=== PATIENT | female | born 1950 | race Caucasian/White ===

== ENCOUNTER → 2017-07-27 | Outpatient (CLI) | payer MEDICARE ==
--- NOTE | 2017-07-28 11:01 | MM ---
Reason for exam: screening (asymptomatic). Last mammogram was performed 6 years and 3 months ago. History: Patient had first child at age 31. Family history of breast cancer in mother at age 40 and breast cancer in sister at age 50. Benign excisional biopsy, 1968. Took hormonal contraceptives for 5 years. Physical Findings: A clinical breast exam by your physician is recommended on an annual basis and results should be correlated with mammographic findings. MG 3D Screening Mammo W/Cad Bilateral CC and MLO view(s) were taken. Prior study comparison: May 26, 2016, mammogram, performed at [facility]. May 06, 2011, mammogram, performed at [facility]. There are scattered fibroglandular densities. Finding: There are typically benign round calcifications in both breasts. There is a chronic nodularity in the left breast. There is no discrete abnormality. ASSESSMENT: Benign, BI-RAD 2 RECOMMENDATION: Routine screening mammogram of both breasts in 1 year.
== END | disposition home or self-care (01) ==
LOC: RADMAMWWP 06:54
PROVIDERS: ATTEND Family Medicine
DX: Z12.31 Encounter for screening mammogram for malignant neoplasm of breast (principal)
CPT/HCPCS: 77063; 77067

== ENCOUNTER → 2017-10-06 | Day surgery (SDC) | payer MEDICARE ==
[2017-09-30 18:06] VITALS: BMI 28.5
[~2017-10-06] MED LIST: LACTATED RINGERS 1,000 ML IV SCH; LIDOCAINE 1% 20 ML VIAL (10MG/ML) FOR IV START INTRADERMA PRN; LIDOCAINE 1% INJ 10MG/ML (20 ML MDV) ONE; PROPOFOL 10 MG/ML 20 ML VIAL IV ONE
--- NOTE | 2017-10-06 09:14 | P.GSHP ---
History of Present Illness H&P Date: 10/06/17 CHIEF COMPLAINT: Colon screen HISTORY OF PRESENT ILLNESS: The patient is a 67-year-old female who presents for colon screen. Lower endoscopy was offered for further evaluation and management. PAST MEDICAL HISTORY: Please see list. PAST SURGICAL HISTORY: Please see list. MEDICATIONS: Please see list. ALLERGIES: Please see list. SOCIAL HISTORY: No illicit drug use FAMILY HISTORY: No reports of Crohn disease or ulcerative colitis. REVIEW OF ORGAN SYSTEMS: CONSTITUTIONAL: No reports of fevers or chills. PHYSICAL EXAM: VITAL SIGNS: Stable GENERAL: Well-developed pleasant in no acute distress. HEENT: No scleral icterus. Extraocular movements grossly intact. Moist buccal mucosa. NECK: Supple without lymphadenopathy. CHEST: Unlabored respirations. Equal bilateral excursions. CARDIOVASCULAR: Regular rate and rhythm. Distal 2+ pulses. ABDOMEN: Soft, nontender, nondistended. MUSCULOSKELETAL: No clubbing, cyanosis, or edema. ASSESSMENT: 1. Colon screen. PLAN: 1. Recommend proceeding with a lower endoscopy Past Medical History Past Medical History: GERD/Reflux, Hyperlipidemia, Hypertension, Skin Disorder Additional Past Medical History / Comment(s): PCOS. PSORIASIS ON SCALP. History of Any Multi-Drug Resistant Organisms: None Reported Past Surgical History: Breast Surgery, Section, Cholecystectomy, Tonsillectomy Additional Past Surgical History / Comment(s): C-S X2. COLONOSCOPY. RT BREAST BX. EXC MOLE BACK. Past Anesthesia/Blood Transfusion Reactions: Previous Problems w/ Anesthesia Additional Past Anesthesia/Blood Transfusion Reaction / Comment(s): WITH EPINEPHRINE AT DENTIST PASSED OUT. Smoking Status: Never smoker - Past Family History Mother Sister(s) Family Medical History: Cancer Father Family Medical History: Pulmonary Embolus Medications and Allergies Home Medications Medication Instructions Recorded Confirmed Type Amitriptyline HCl [Elavil] 100 mg PO HS 09/30/17 09/30/17 History Aspirin EC [Ecotrin Low Dose] 81 mg PO HS 09/30/17 09/30/17 History Cetirizine HCl [Zyrtec] 10 mg PO HS PRN 09/30/17 09/30/17 History Cholecalciferol (Vitamin D3) 4,000 unit PO DAILY 09/30/17 09/30/17 History [Vitamin D3] Fenofibrate [Lofibra] 160 mg PO DAILY 09/30/17 09/30/17 History Fluticasone Nasal [place] [Flonase 2 spr EA NOSTRIL DAILY 09/30/17 09/30/17 History Nasal [place]] Levothyroxine Sodium [Synthroid] 75 mcg PO DAILY 09/30/17 09/30/17 History Meloxicam [Mobic] 15 mg PO DAILY PRN 09/30/17 09/30/17 History Multivitam, Mature 1 tab PO DAILY 09/30/17 History [place]-3/Dha/Epa/Fish Oil [Fish Oil 1 each PO DAILY 09/30/17 09/30/17 History EC 1,200 mg Softgel] Omeprazole 20 mg PO DAILY 09/30/17 09/30/17 History Polyethylene Glycol 3350 [Miralax] 17 gm PO DAILY 09/30/17 09/30/17 History Spironolactone 50 mg PO DAILY 09/30/17 09/30/17 History Ubidecarenone [Co Q-10] 300 mg PO DAILY 09/30/17 09/30/17 History buPROPion XL [Wellbutrin Xl] 150 mg PO DAILY 09/30/17 09/30/17 History metFORMIN HCL [Glucophage] 500 mg PO BID 09/30/17 09/30/17 History Allergies Allergy/AdvReac Type Severity Reaction Status Date / Time acetaminophen [From Vicodin] Allergy Rash/Hives Verified 09/30/17 17:40 celecoxib [From Celebrex] Allergy Rash/Hives Verified 09/30/17 17:40 codeine Allergy Rash/Hives Verified 09/30/17 17:40 epinephrine Allergy PASSED OUT Verified 09/30/17 17:40 hydrocodone [From Vicodin] Allergy Rash/Hives Verified 09/30/17 17:40 [id number]-[id number]-Wnw Reductase AdvReac MUSCLE Verified 09/30/17 17:40 Inhibitor CRAMPS
[2017-10-06 11:15] VITALS: TEMP 98.1
--- NOTE | 2017-10-06 12:39 | P.PCN ---
Date of Procedure: 10/06/17 Description of Procedure: PREOPERATIVE DIAGNOSIS: Colonoscopy screening. POSTOPERATIVE DIAGNOSIS: Colonoscopy screening. Diverticulosis, scattered. Tubular adenoma hepatic flexure Poor colonoscopy prep Chronic constipation OPERATION: Colonoscopy to the ileocecal valve and appendiceal orifice. Colonoscopy with cold forceps biopsy SURGEON: Nikki Rankin MD. ANESTHESIA: MAC. INDICATIONS: The patient is a [id number] female who presents for colonoscopy screening. Benefits and risks were described and informed consent was obtained. DESCRIPTION OF PROCEDURE: The patient had undergone Gatorade, MiraLAX and Dulcolax prep. She had been brought into the operating room and laid in the left lateral decubitus position. After adequate intravenous sedation, the rectum was examined with 2% lidocaine jelly. External hemorrhoids were encountered. The rectal tone was within normal limits. No lesions were palpated in the rectal vault. An Olympus colonoscope was advanced until the ileocecal valve was viewed. The patient was placed from lateral to supine to lateral decubitus to navigate the scope including abdominal wall pressure. The prep was very poor requiring over 2 L normal saline irrigation. The scope was slowly removed with visualization of the mucosal folds. Scattered diverticulosis was encountered. Colonic polyp was found at the hepatic flexure, 4 mm tubular villous. No evidence of focal colitis was found. Retroflexion of the scope demonstrated grade 2 internal hemorrhoids without active bleeding or inflammation. The colon was desufflated. The patient had tolerated the procedure well. Withdrawal time was over 6 minutes. FINDINGS: Internal hemorrhoids, grade 2 External prolapsed hemorrhoids, grade 2 Extremely poor colonic prep requiring moderate 2 L irrigation No arteriovenous malformations. No focal colitis. Colonic polyp was found at the hepatic flexure, 4 mm tubular villous RECOMMENDATIONS: Lower endoscopy in 5 years, 2022 Plan - Discharge Summary New Discharge Prescriptions: No Action [place]-3/Dha/Epa/Fish Oil [Fish Oil EC 1,200 mg Softgel] 1 each PO DAILY Fluticasone Nasal [place] [Flonase Nasal [place]] 2 spr EA NOSTRIL DAILY Ubidecarenone [Co Q-10] 300 mg PO DAILY Omeprazole 20 mg PO DAILY Cholecalciferol (Vitamin D3) [Vitamin D3] 4,000 unit PO DAILY metFORMIN HCL [Glucophage] 500 mg PO BID Meloxicam [Mobic] 15 mg PO DAILY PRN PRN Reason: Pain Fenofibrate [Lofibra] 160 mg PO DAILY buPROPion XL [Wellbutrin Xl] 150 mg PO DAILY Spironolactone 50 mg PO DAILY Cetirizine HCl [Zyrtec] 10 mg PO HS PRN PRN Reason: ALLERGY SX Aspirin EC [Ecotrin Low Dose] 81 mg PO HS Amitriptyline HCl [Elavil] 100 mg PO HS Multivitam, Mature 1 tab PO DAILY Levothyroxine Sodium [Synthroid] 75 mcg PO DAILY Polyethylene Glycol 3350 [Miralax] 17 gm PO DAILY Discharge Medication List Amitriptyline HCl [Elavil] 100 mg PO HS 09/30/17 [History] Aspirin EC [Ecotrin Low Dose] 81 mg PO HS 09/30/17 [History] Cetirizine HCl [Zyrtec] 10 mg PO HS PRN 09/30/17 [History] Cholecalciferol (Vitamin D3) [Vitamin D3] 4,000 unit PO DAILY 09/30/17 [History] Fenofibrate [Lofibra] 160 mg PO DAILY 09/30/17 [History] Fluticasone Nasal [place] [Flonase Nasal [place]] 2 spr EA NOSTRIL DAILY 09/30/17 [ History] Levothyroxine Sodium [Synthroid] 75 mcg PO DAILY 09/30/17 [History] Meloxicam [Mobic] 15 mg PO DAILY PRN 09/30/17 [History] Multivitam, Mature 1 tab PO DAILY 09/30/17 [History] [place]-3/Dha/Epa/Fish Oil [Fish Oil EC 1,200 mg Softgel] 1 each PO DAILY [History] Omeprazole 20 mg PO DAILY 09/30/17 [History] Polyethylene Glycol 3350 [Miralax] 17 gm PO DAILY 09/30/17 [History] Spironolactone 50 mg PO DAILY 09/30/17 [History] Ubidecarenone [Co Q-10] 300 mg PO DAILY 09/30/17 [History] buPROPion XL [Wellbutrin Xl] 150 mg PO DAILY 09/30/17 [History] metFORMIN HCL [Glucophage] 500 mg PO BID 09/30/17 [History]
[2017-10-06 13:06] VITALS: RESP 18
[2017-10-06 13:08] VITALS: BP 120/66; PULSE 91
== END | disposition home or self-care (01) ==
LOC: ORWHC2ENDO 09:14
PROVIDERS: ATTEND Surgery Plastic and Reconstructive Surgery
DX: Z12.11 Encounter for screening for malignant neoplasm of colon (principal); D12.3 Benign neoplasm of transverse colon; E28.2 Polycystic ovarian syndrome; E78.5 Hyperlipidemia, unspecified; I10 Essential (primary) hypertension; K21.9 Gastro-esophageal reflux disease without esophagitis; L40.9 Psoriasis, unspecified; K64.4 Residual hemorrhoidal skin tags; K64.1 Second degree hemorrhoids; E07.9 Disorder of thyroid, unspecified; F39 Unspecified mood [affective] disorder; K57.30 Diverticulosis of large intestine without perforation or abscess without bleeding; Z79.82 Long term (current) use of aspirin; Z79.51 Long term (current) use of inhaled steroids; Z79.899 Other long term (current) drug therapy; Z90.49 Acquired absence of other specified parts of digestive tract; Z88.5 Allergy status to narcotic agent; Z88.8 Allergy status to other drugs, medicaments and biological substances; Z79.84 Long term (current) use of oral hypoglycemic drugs
CPT/HCPCS: 88305; 45380; J2001; J2704

== ENCOUNTER → 2019-06-20 | Outpatient (CLI) | payer BC, MEDICARE ==
--- NOTE | 2019-06-21 13:07 | MM ---
Reason for exam: additional evaluation requested from prior study. Last mammogram was performed 1 year and 1 month ago. History: Patient had first child at age 31. Family history of breast cancer in mother at age 40 and breast cancer in sister at age 50. Benign excisional biopsy, 1968. Took hormonal contraceptives for 5 years. Taking estrogen beginning at age 67. Physical Findings: Nurse did not find any significant physical abnormalities on exam. MG 3D Diag Mammo W/Cad LEIGH Bilateral CC and MLO view(s) were taken. Prior study comparison: May 18, 2018, bilateral MG 3d diag mammo w/cad LEIGH. July 27, 2017, bilateral MG 3d screening mammo w/cad. The breast tissue is heterogeneously dense. This may lower the sensitivity of mammography. Benign appearing bilateral calcifications. No suspicious abnormality. No significant new findings when compared with previous films. These results were verbally communicated with the patient and result sheet given to the patient on 06/20/19. ASSESSMENT: Benign, BI-RAD 2 RECOMMENDATION: Routine screening mammogram of both breasts in 1 year. Ultrasound is benign performed for right breast skin thickening per patient.
--- NOTE | 2019-06-21 13:09 | USB ---
Reason for exam: clinical finding. History: Patient had first child at age 31. Family history of breast cancer in mother at age 40 and breast cancer in sister at age 50. Benign excisional biopsy, 1967. Took hormonal contraceptives for 5 years. Taking estrogen beginning at age 67. US Breast RT Right complete breast ultrasound includes all four quadrants, the retroareolar region and axilla. Finding demonstrates no cystic or solid lesion seen. Lymph nodes noted in axilla morphology normal and nonenlarged. These results were verbally communicated with the patient and result sheet given to the patient on 06/20/19. ASSESSMENT: Negative, BI-RAD 1 RECOMMENDATION: Routine screening mammogram of both breasts in 1 year.
== END | disposition home or self-care (01) ==
LOC: RADMAMWWP 12:45
PROVIDERS: ATTEND Family Medicine
DX: N63.10 Unspecified lump in the right breast, unspecified quadrant (principal)
CPT/HCPCS: 77066; 76641; G0279; 77062

== ENCOUNTER → 2019-07-07 | Outpatient (CLI) | payer MEDICARE ==
[2019-07-07 09:11] VITALS: BP 117/76; PULSE 86; RESP 16; TEMP 97.7
--- NOTE | 2019-07-07 09:58 | P.GSHP ---
History of Present Illness H&P Date: 07/07/19 Chief Complaint: right axilla lump Fanny is a 69-year-old white female who presents for breast evaluation. She is seen in consultation for Dr. Sevilla. She states that several months ago she felt some fullness in the right lateral breast/axillary area. She had a bilateral mammogram performed on [id number] which did not see anything of concern and repeat bilateral mammogram in 1 year was recommended. She also had an ultrasound performed of the area of thickening and the ultrasound did not show any cystic or solid lesions. Lymph nodes were noted in the axilla which appeared to have normal morphology. The patient denies any pain or trauma to the breast. No recent infections in the breast. No abnormal nipple discharge or changes. caffiene: none chocolate: occasionally smoke: none Family History; mother: of breast cancer at 53, dx. premenopausal sister: breast cancer at 70, genetic testing negative son: cancer of appendix Hormonal History: menarche: 9 , bresat fed: yes, first born at 31 menopause: hysterectomy at 38, done for bleeding BCP: 10 years hormones: estradioil vaginal inserts Surgical history: 1. 2 2. Cholecystectomy 3. Tonsillectomy 4. Nevus removed from back 5. Hysterectomy 6. Open breast biopsy Medical history: high cholesterol depression interstitial cystitis social History: smoke: none alcohol: none drugs: none - Constitutional Constitutional: Denies chills, Denies fever - EENT Eyes: denies blurred vision, denies pain Ears: deny: decreased hearing, tinnitus Ears, nose, mouth and throat: Denies headache, Denies sore throat - Breasts Breasts: bilateral: as per HPI - Cardiovascular Cardiovascular: Denies chest pain, Denies shortness of breath - Respiratory Respiratory: Denies cough, Denies 7 - Gastrointestinal Gastrointestinal: Denies abdominal pain, Denies diarrhea, Denies nausea, Denies vomiting - Genitourinary (Female) Comment: Interstitial cystitis - Menstruation Menstruation: Reports post hysterectomy - 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 - Integumentary Integumentary: Denies pruritus, Denies rash - Neurological Neurological: Denies numbness, Denies weakness - Psychiatric Psychiatric: Reports depression - Endocrine Endocrine: Denies fatigue, Denies weight change - Hematologic/Lymphatic Comment: mobic once a week, asprirn, fish oil - Allergic/Immunologic Allergic/Immunologic: Reports seasonal allergies Past Medical History Past Medical History: GERD/Reflux, Hyperlipidemia, Hypertension, Skin Disorder Additional Past Medical History / Comment(s): PCOS. PSORIASIS ON SCALP. History of Any Multi-Drug Resistant Organisms: None Reported Past Surgical History: Breast Surgery, Section, Cholecystectomy, Tonsillectomy Additional Past Surgical History / Comment(s): C-S X2. COLONOSCOPY. RT BREAST BX. EXC MOLE BACK. Past Anesthesia/Blood Transfusion Reactions: Previous Problems w/ Anesthesia Additional Past Anesthesia/Blood Transfusion Reaction / Comment(s): WITH EPINEPHRINE AT DENTIST PASSED OUT. Smoking Status: Never smoker Past Alcohol Use History: None Reported Past Drug Use History: None Reported - Past Family History Mother Sister(s) Family Medical History: Cancer Father Family Medical History: Pulmonary Embolus Medications and Allergies Home Medications Medication Instructions Recorded Confirmed Type Amitriptyline HCl [Elavil] 100 mg PO HS 09/30/17 07/07/19 History Aspirin EC [Ecotrin Low Dose] 81 mg PO HS 09/30/17 07/07/19 History Cetirizine HCl [Zyrtec] 10 mg PO HS PRN 09/30/17 07/07/19 History Cholecalciferol (Vitamin D3) 4,000 unit PO DAILY 09/30/17 07/07/19 History [Vitamin D3] Fluticasone Nasal [place] [Flonase 2 spr EA NOSTRIL DAILY 09/30/17 07/07/19 History Nasal [place]] Levothyroxine Sodium [Synthroid] 75 mcg PO DAILY 09/30/17 07/07/19 History Meloxicam [Mobic] 15 mg PO DAILY PRN 09/30/17 07/07/19 History Multivitam, Mature 1 tab PO DAILY 09/30/17 07/07/19 History [place]-3/Dha/Epa/Fish Oil [Fish Oil 1 each PO DAILY 09/30/17 07/07/19 History EC 1,200 mg Softgel] Omeprazole 20 mg PO DAILY 09/30/17 07/07/19 History Polyethylene Glycol 3350 [Miralax] 17 gm PO DAILY 09/30/17 07/07/19 History Spironolactone 50 mg PO DAILY 09/30/17 07/07/19 History Ubidecarenone [Co Q-10] 300 mg PO DAILY 09/30/17 07/07/19 History buPROPion XL [Wellbutrin Xl] 150 mg PO DAILY 09/30/17 07/07/19 History metFORMIN HCL [Glucophage] 500 mg PO BID 09/30/17 07/07/19 History Allergies Allergy/AdvReac Type Severity Reaction Status Date / Time acetaminophen [From Vicodin] Allergy Rash/Hives Verified 07/07/19 09:05 celecoxib [From Celebrex] Allergy Rash/Hives Verified 07/07/19 09:05 codeine Allergy Rash/Hives Verified 07/07/19 09:05 epinephrine Allergy PASSED OUT Verified 07/07/19 09:05 hydrocodone [From Vicodin] Allergy Rash/Hives Verified 07/07/19 09:05 Rayupsq-Qyp-Eqc Reductase AdvReac MUSCLE Verified 07/07/19 09:05 Inhibitor CRAMPS Surgical - Exam Vital Signs Temp Pulse Resp BP Pulse Ox 97.7 F 86 16 117/76 98 07/07/19 09:08 07/07/19 09:08 07/07/19 09:08 07/07/19 09:08 07/07/19 09:08 BMI 27.4 - General well developed, well nourished, no distress - Eyes normal ocular movement - ENT no hearing loss, no congestion - Neck no masses, trachea midline - Respiratory normal expansion, normal respiratory effort, clear to auscultation - Cardiovascular Rhythm: regular Heart Sounds: normal: S1, S2 - Abdomen Abdomen: soft, non tender, no guarding, no rigid, no rebound - Integumentary normal turgor - Neurologic no disoriented, no combative - Musculoskeletal normal gait, normal posture - Psychiatric oriented to time, oriented to person, oriented to place, speech is normal, memory intact breast exam: Bra 42D Right breast: Multiple positional exam fibrocystic changes, no dominant masses or nodules of concern, right breast is slightly larger than left breast Right axilla: No dominant masses or nodules of concern Left breast: Multi-positional exam fibrocystic changes no dominant masses or nodules of concern Left axilla: No adenopathy of concern Particular attention was paid to the area of the right axilla/lateral breast at the patient was concerned about there is no discrete dominant mass which I'm able to palpate of concern there appears to be somewhat prominent subcutaneous tissue but nothing was rewarmed biopsy at this time Results mammogram report reviewed Assessment and Plan Assessment: Impression: 1. Fullness right lateral breast/axilla which appears to be consistent with prominent subcutaneous tissue but no discrete dominant mass or nodule which would warrant interventional biopsy 2. Fibrocystic breast changes 3. Depression 4. High cholesterol 5. Interstitial cystitis Plan: 1. Continue close personal surveillance if any changes would see the patient immediately 2. Repeat physical exam in 6 months for monitoring 3. Bilateral mammogram in physician exam in 1 year Cc: Dr. Sevilla Encounter: 25 minutes, greater than 50% of time spent in planning and counseling
== END | disposition home or self-care (01) ==
LOC: WWCWWP 08:29
PROVIDERS: ATTEND Surgery
DX: Z53.9 Procedure and treatment not carried out, unspecified reason (principal)

== ENCOUNTER → 2020-03-07 | Outpatient (CLI) | payer MEDICARE | END | disposition home or self-care (01) | LOC: LABWHC1 13:04 | PROVIDERS: ATTEND Family Medicine | DX: Z20.828 Contact with and (suspected) exposure to other viral communicable diseases (principal) | CPT/HCPCS: U0003; C9803 ==

== ENCOUNTER → 2020-06-24 | Outpatient (CLI) | payer MEDICARE ==
--- NOTE | 2020-06-24 10:39 | MM ---
Reason for exam: additional evaluation requested from prior study. Last mammogram was performed 1 year ago. History: Patient had first child at age 31. Family history of breast cancer in mother at age 40 and breast cancer in sister at age 50. Benign excisional biopsy, 1968. Took hormonal contraceptives for 5 years. Taking estrogen beginning at age 67. Physical Findings: Nurse did not find any significant physical abnormalities on exam. MG 3D Diag Mammo W/Cad LEIGH Bilateral CC and MLO view(s) were taken. Prior study comparison: June 20, 2019, bilateral MG 3d diag mammo w/cad LEIGH. May 18, 2018, bilateral MG 3d diag mammo w/cad LEIGH. The breast tissue is heterogeneously dense. This may lower the sensitivity of mammography. Stable benign calcifications. There is no discrete abnormality. No significant new findings when compared with previous films. These results were verbally communicated with the patient and result sheet given to the patient on 06/24/20. ASSESSMENT: Benign, BI-RAD 2 RECOMMENDATION: Routine screening mammogram of both breasts in 1 year.
== END | disposition home or self-care (01) ==
LOC: RADMAMWWP 09:32
PROVIDERS: ATTEND Surgery
DX: R92.8 Other abnormal and inconclusive findings on diagnostic imaging of breast (principal)
CPT/HCPCS: 77066; G0279; 77062

== ENCOUNTER → 2020-07-11 | Outpatient (CLI) | payer MEDICARE ==
[2020-07-11 10:45] VITALS: BP 122/64; RESP 18; TEMP 97.8
--- NOTE | 2020-07-11 10:51 | P.PN ---
Subjective Progress Note Date: 07/11/20 Principal diagnosis: fibrocystic breast changes Fanny is a 70-year-old white female who presents for breast evaluation. She was seen in consultation for Dr. Clayton on 07-07-19. At that time she felt some fullness in the right lateral breast/axillary area, this has not changed. She had a bilateral mammogram performed on [id number] which did not see anything of concern and repeat bilateral mammogram in 1 year was recommended. She also had an ultrasound performed of the area of thickening and the ultrasound did not show any cystic or solid lesions. The patient denied any pain or trauma to the breast. She is not complaining of any lumps masses or nodules in her breast. No recent infections in the breast. No abnormal nipple discharge or changes. Most recent mammogram was on 06-24-20 and this was benign BIRAD 2. caffiene: none chocolate: occasionally smoke: none Family History; mother: of breast cancer at 53, dx. premenopausal sister: breast cancer at 70, genetic testing negative son: cancer of appendix Hormonal History: menarche: 9 , bresat fed: yes, first born at 31 menopause: hysterectomy at 38, done for bleeding BCP: 10 years hormones: estradioil vaginal inserts Surgical history: 1. 2 2. Cholecystectomy 3. Tonsillectomy 4. Nevus removed from back 5. Hysterectomy 6. Open breast biopsy Medical history: high cholesterol depression interstitial cystitis social History: smoke: none alcohol: none drugs: none - Constitutional Constitutional: Denies chills, Denies fever - EENT Eyes: denies blurred vision, denies pain Ears: deny: decreased hearing, tinnitus Ears, nose, mouth and throat: Denies headache, Denies sore throat - Breasts Breasts: bilateral: as per HPI - Cardiovascular Cardiovascular: Denies chest pain, Denies shortness of breath - Respiratory Respiratory: Denies cough - Gastrointestinal Gastrointestinal: Denies abdominal pain, Denies diarrhea, Denies nausea, Denies vomiting - Genitourinary (Female) Comment: Interstitial cystitis - Menstruation Menstruation: Reports post hysterectomy - 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 - Integumentary Integumentary: Denies pruritus, Denies rash - Neurological Neurological: Denies numbness, Denies weakness - Psychiatric Psychiatric: Reports depression - Endocrine Endocrine: Denies fatigue, Denies weight change - Hematologic/Lymphatic Comment: mobic once a week, asprirn, fish oil - Allergic/Immunologic Allergic/Immunologic: Reports seasonal allergies Objective - Exam BMI 26.6 - Constitutional General appearance: Present: average body habitus - EENT Eyes: Present: EOMI ENT: Present: hearing grossly normal - Neck Neck: Present: normal ROM - Respiratory Respiratory: bilateral: CTA - Cardiovascular Rhythm: regular Heart sounds: normal: S1, S2 - Gastrointestinal General gastrointestinal: Present: soft - Integumentary Integumentary: Present: normal turgor - Musculoskeletal Musculoskeletal: Present: gait normal - Psychiatric Psychiatric: Present: A&O x's 3, appropriate affect - Additional findings Additional findings: Breast exam: BRA 38D inspection: bilateral grade 3 ptosis, bilateral nipple inversion Palpation: Right breast: Multi-positional exam no dominant masses or nodules of concern Right axilla: No adenopathy of concern Left breast: Multiple positional exam no dominant masses or nodules of concern Left axilla: No adenopathy of concern Assessment and Plan Assessment: Impression: high cholesterol depression interstitial cystitis fibrocystic breast changes Plan: 1. repeat bilateral mammogram in 1 year with exam CC: Dr. Clayton encounter 15 minutes, > 50% of time in planning and counselling
== END | disposition home or self-care (01) ==
LOC: WWCWWP 10:07
PROVIDERS: ATTEND Surgery
DX: Z53.9 Procedure and treatment not carried out, unspecified reason (principal)

== ENCOUNTER → 2021-04-15 | Outpatient (CLI) | payer MEDICARE ==
--- NOTE | 2021-04-15 11:02 | XR ---
EXAMINATION TYPE: XR cervical spine comp DATE OF EXAM: 04/15/2021 TECHNIQUE: Frontal, lateral, oblique, and open mouth view of the cervical spine are obtained. HISTORY: M54.2 COMPARISON: None FINDINGS: The cervical spine is visualized in its entirety from C1 thru the top of T1 level, there i s loss of normal cervical curvature without evidence of acute fracture or dislocation. The pre-verte bral soft tissue appears within normal limits. The C1-C2 articulation is within normal limits on the open mouth view. Vertebral body heights are maintained. Mild to moderate disc space narrowing C4-C5 level. [id number] disc space narrowing C5-C6 and C6-C7 levels with mild to moderate anterior spurring. Moderate disc space during C7-T1 level. The oblique images show uncovertebral facet degene rative changes causing mild bilateral neural foraminal narrowing at C3-C4 level. Overlying soft tissu e is unremarkable. IMPRESSION: As above.
== END | disposition home or self-care (01) ==
LOC: RADXRMAIN 10:37
PROVIDERS: ATTEND Nurse Practitioner Family
DX: M50.323 Other cervical disc degeneration at C6-C7 level (principal); M47.812 Spondylosis without myelopathy or radiculopathy, cervical region
CPT/HCPCS: 72050

== ENCOUNTER → 2021-06-26 | Outpatient (CLI) | payer MEDICARE ==
--- NOTE | 2021-06-30 12:04 | MM ---
Reason for exam: screening (asymptomatic). Last mammogram was performed 1 year ago. History: Patient had first child at age 31. Family history of breast cancer in mother at age 40 and breast cancer in sister at age 50. Benign excisional biopsy, 1968. Took hormonal contraceptives for 5 years. Taking estrogen beginning at age 67. Physical Findings: A clinical breast exam by your physician is recommended on an annual basis and results should be correlated with mammographic findings. MG 3D Screening Mammo W/Cad Bilateral CC and MLO view(s) were taken. Prior study comparison: June 24, 2020, bilateral MG 3d diag mammo w/cad [facility]. June 20, 2019, bilateral MG 3d diag mammo w/cad [facility]. There are scattered fibroglandular densities. No significant changes when compared with prior studies. ASSESSMENT: Negative, BI-RAD 1 RECOMMENDATION: Routine screening mammogram of both breasts in 1 year.
== END | disposition home or self-care (01) ==
LOC: RADMAMWWP 07:01
PROVIDERS: ATTEND Surgery
DX: Z12.31 Encounter for screening mammogram for malignant neoplasm of breast (principal); Z80.3 Family history of malignant neoplasm of breast
CPT/HCPCS: 77063; 77067

== ENCOUNTER → 2021-07-10 | Outpatient (CLI) | payer MEDICARE ==
[2021-07-10 09:41] VITALS: BP 129/84; PULSE 98; RESP 16; TEMP 98.1
--- NOTE | 2021-07-10 10:09 | P.PN ---
Subjective Progress Note Date: 07/10/21 Principal diagnosis: fibrocystic breast changes fibrocystic breast changes Fanny is a 71-year-old white female who presents for breast evaluation. She was seen in consultation for Dr. Clayton on 07-07-19. At that time she felt some fullness in the right lateral breast/axillary area, this has not changed. She had a bilateral mammogram performed on 12160713 which did not see anything of concern and repeat bilateral mammogram in 1 year was recommended. She also had an ultrasound performed of the area of thickening and the ultrasound did not show any cystic or solid lesions. The patient denied any pain or trauma to the breast. She is not complaining of any lumps masses or nodules in her breast. She does state that she feels some thickening in the lateral aspect of her right breast over the last several months. Nothing was noted radiographically at this site. No recent infections in the breast. No abnormal nipple discharge or changes. Most recent mammogram was on 06-26-21 and this was benign BIRAD 1 . She does have chronic right nipple inversion. caffiene: none chocolate: occasionally smoke: none Family History; mother: of breast cancer at 53, dx. premenopausal sister: breast cancer at 70, genetic testing negative son: cancer of appendix Hormonal History: menarche: 9 , bresat fed: yes, first born at 31 menopause: hysterectomy at 38, done for bleeding BCP: 10 years hormones: estradioil vaginal inserts Surgical history: 1. 2 2. Cholecystectomy 3. Tonsillectomy 4. Nevus removed from back 5. Hysterectomy 6. Open breast biopsy Medical history: high cholesterol depression interstitial cystitis social History: smoke: none alcohol: none drugs: none - Constitutional Constitutional: Denies chills, Denies fever - EENT Eyes: denies blurred vision, denies pain Ears: deny: decreased hearing, tinnitus Ears, nose, mouth and throat: Denies headache, Denies sore throat - Breasts Breasts: bilateral: as per HPI - Cardiovascular Cardiovascular: Denies chest pain, Denies shortness of breath - Respiratory Respiratory: Denies cough - Gastrointestinal Gastrointestinal: Denies abdominal pain, Denies diarrhea, Denies nausea, Denies vomiting - Genitourinary (Female) Comment: Interstitial cystitis - Menstruation Menstruation: Reports post hysterectomy - 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 - Integumentary Integumentary: Denies pruritus, Denies rash - Neurological Neurological: Denies numbness, Denies weakness - Psychiatric Psychiatric: Reports depression - Endocrine Endocrine: Denies fatigue, Denies weight change - Hematologic/Lymphatic Comment: mobic once a week, asprirn, fish oil - Allergic/Immunologic Allergic/Immunologic: Reports seasonal allergies Objective - Vital Signs Vital signs: Vital Signs Temp 98.1 F 07/10/21 09:39 Pulse 98 07/10/21 09:39 Resp 16 07/10/21 09:39 BP 129/84 07/10/21 09:39 Pulse Ox Intake & Output 07/09/21 07/10/21 07/10/21 18:59 06:59 18:59 Weight 70.76 kg - Exam BMI 27.6 - Constitutional General appearance: Present: cooperative - EENT Eyes: Present: EOMI ENT: Present: hearing grossly normal - Neck Neck: Present: normal ROM - Respiratory Respiratory: bilateral: CTA - Cardiovascular Rhythm: regular Heart sounds: normal: S1, S2 - Gastrointestinal General gastrointestinal: Present: soft - Integumentary Integumentary: Present: normal turgor - Musculoskeletal Musculoskeletal: Present: gait normal - Psychiatric Psychiatric: Present: A&O x's 3, appropriate affect, intact judgment & insight - Additional findings Additional findings: Breast Exam: BRA: 40D inspection: bilateral grade 3 ptosis palpation: right breast: nipple inversion, multi-positional exam no dominant masses or nodules of concern; no thickening noted on physical examination in the lateral aspect of the breast Right axilla: No adenopathy of concern Left breast: Multi-positional exam no dominant masses or nodules of concern Left axilla: No adenopathy of concern Assessment and Plan Assessment: Mammpgrams were personally reviewed with Dr. Jeffers and reviewed back to 2019. Impression: high cholesterol depression interstitial cystitis Procedure cystic breast changes Chronic right nipple inversion/omentum left nipple inversion not noted today Plan: Repeat bilateral mammogram in 1 year with physician exam at that time Patient to follow up sooner any questions or concerns CC: Dr. Clayton; Jennifer Burr N.P.
== END ==
LOC: WWCWWP 09:25
PROVIDERS: ATTEND Surgery
DX: N60.11 Diffuse cystic mastopathy of right breast (principal); E78.00 Pure hypercholesterolemia, unspecified; F32.A Depression, unspecified; N30.10 Interstitial cystitis (chronic) without hematuria; Z88.6 Allergy status to analgesic agent; Z88.5 Allergy status to narcotic agent; Z88.8 Allergy status to other drugs, medicaments and biological substances

== ENCOUNTER 2021-08-06 07:35 | Day surgery (SDC) | payer MEDICARE ==
[2021-08-01 09:39] VITALS: BMI 27.6
[~2021-08-06 07:35] MED LIST changes: +LIDOCAINE 1% (10MG/ML) FOR IV START INTRADERMA PRN; -LIDOCAINE 1% 20 ML VIAL (10MG/ML) FOR IV START INTRADERMA PRN; -LIDOCAINE 1% INJ 10MG/ML (20 ML MDV) ONE; -PROPOFOL 10 MG/ML 20 ML VIAL IV ONE
[2021-08-06 08:21] LABS: Glucose,Whole Blood 94 mg/dL (75-99)
[2021-08-06 08:22] VITALS: RESP 16; TEMP 97.1
[2021-08-06] MEDS ORDERED: fentaNYL (PF) 50 MCG/ML 2 ML AMP ONE (08:28)
[2021-08-06] MEDS ORDERED: PROPOFOL 10 MG/ML 20 ML VIAL IV ONE (08:28)
[2021-08-06] MEDS ORDERED: MIDAZOLAM 2 MG/2 ML VIAL ONE (08:28)
--- NOTE | 2021-08-06 08:53 | P.PCN ---
Date of Procedure: 08/06/21 Procedure(s) Performed: BRIEF HISTORY: Patient is a 71-year-old pleasant white female scheduled for an elective colonoscopy as a part of evaluation of prior history of colon polyps. Her last colonoscopy was was 3 years ago. PROCEDURE PERFORMED: Colonoscopy with biopsy. PREOPERATIVE DIAGNOSIS: History of colon polyps. IV sedation per Anesthesia. PROCEDURE: After informed consent was obtained, the patient, was brought into the endoscopy unit. IV sedation was administered by Anesthesia under continuous monitoring. Digital rectal examination was normal. Initially the Olympus CF-160 flexible video colonoscope was then inserted in the rectum, gradually advanced into the cecum without any difficulty. Careful examination was performed as the scope was gradually being withdrawn. Ileocecal valve and the appendiceal orifice were visualized and appeared normal. Prep was excellent. Mucosa of the cecum, ascending colon appeared normal. In the transverse colon there was a 3 mm and 5 mm sessile polyp removed by cold biopsy. Rest of the, transverse colon, descending colon, sigmoid colon, and rectum appeared normal. Scattered sigmoid diverticulosis seen. Retroflexion was performed in the rectum and no lesions were seen. The patient tolerated the procedure well. IMPRESSION: 3 mm and 5 mm transverse colon polyps status post removal by cold biopsy Scattered sigmoid diverticulosis. RECOMMENDATIONS: Findings of this examination were discussed with the patient as well as her family. She was advised to follow with the biopsy results. If the biopsy reveals adenoma she can have a repeat colonoscopy in 5 years..
[2021-08-06 09:01] VITALS: BP 131/79; PULSE 90
== END 2021-08-06 09:25 | disposition home or self-care (01) ==
LOC: ORWHC2ENDO 07:35
PROVIDERS: ATTEND Internal Medicine Gastroenterology
DX: D12.3 Benign neoplasm of transverse colon (principal); K57.30 Diverticulosis of large intestine without perforation or abscess without bleeding; Z86.010 Personal history of colon polyps
CPT/HCPCS: 45380; 88305; J2250; J3010; J2704

== ENCOUNTER → 2022-07-02 | Outpatient (CLI) | payer MEDICARE ==
--- NOTE | 2022-07-05 13:22 | MM ---
Reason for Exam: Screening (asymptomatic). Last screening mammogram was performed 12 month(s) ago. Patient History: Menarche at age 9. First Full-Term at age 31. Late child-bearing (after 30). Hysterectomy at age 39. Patient has history of breast feeding. Currently using Estrogen, starting at age 67. Patient used Hormonal Contraceptives for 5 years. Benign Excisional Biopsy. Sister had breast cancer, age 50. Mother had breast cancer, age 40. Risk Values: Kristina 5 year model risk: 6.7%. NCI Lifetime model risk: 14.8%. Prior Study Comparison: 05/26/2016 Screening Mammogram, [facility], [place]. 07/27/2017 Bilateral Screening Mammogram, [facility]. 05/18/2018 Bilateral Diagnostic Mammogram, [facility]. 06/20/2019 Bilateral Diagnostic Mammogram, [facility]. 06/24/2020 Bilateral Diagnostic Mammogram, [facility]. 06/26/2021 Bilateral Screening Mammogram, [facility]. Tissue Density: There are scattered fibroglandular densities. Findings: Analyzed By CAD. There is no suspicious group of microcalcifications or new suspicious mass in either breast. Overall Assessment: Benign, BI-RAD 2 Management: Screening Mammogram of both breasts in 1 year. 1. Per NCCN guidelines, a 5 year risk greater than 1.67% may qualify the patient for risk reduction therapy. Consider specialist referral for further assessment. 2. Patient should continue monthly self breast exams. 3. Negative results should not preclude additional follow-up of suspicious palpable abnormalities. Electronically signed and approved by: Margaux Roldan M.D. Radiologist
== END | disposition home or self-care (01) ==
LOC: RADMAMWWP 11:09
PROVIDERS: ATTEND Surgery
DX: Z12.31 Encounter for screening mammogram for malignant neoplasm of breast (principal); Z80.3 Family history of malignant neoplasm of breast
CPT/HCPCS: 77063; 77067

== ENCOUNTER → 2022-07-09 | Outpatient (CLI) | payer MEDICARE ==
[2022-07-09 09:39] VITALS: BP 131/81; PULSE 94; RESP 16; TEMP 98.2
--- NOTE | 2022-07-09 10:13 | P.PN ---
Subjective Progress Note Date: 07/09/22 Principal diagnosis: fibrocystic breast changes fibrocystic breast changes Fanny is a 72-year-old white female who presents for breast evaluation. She was seen in consultation for Dr. Clayton on 07-07-19. At that time she felt some fullness in the right lateral breast/axillary area, this has not changed. She had a bilateral mammogram performed on 12160713 which did not see anything of concern and repeat bilateral mammogram in 1 year was recommended. She also had an ultrasound performed of the area of thickening and the ultrasound did not show any cystic or solid lesions. The patient denied any pain or trauma to the breast. She is not complaining of any lumps masses or nodules in her breast. She does state that she feels some thickening in the lateral aspect of her right breast over the last several months. Nothing was noted radiographically at this site. No recent infections in the breast. No abnormal nipple discharge or changes. Most recent mammogram was on 07-02-22 and this was benign BIRAD 2 . She does have chronic right nipple inversion. Her 5 year Chelsi risk score is 1.67 we have discussed chemoprevention and she has declined caffiene: none chocolate: occasionally smoke: none Family History; mother: of breast cancer at 53, dx. premenopausal sister: breast cancer at 70, genetic testing negative son: cancer of appendix Hormonal History: menarche: 9 , bresat fed: yes, first born at 31 menopause: hysterectomy at 38, done for bleeding BCP: 10 years hormones: estradioil vaginal inserts Surgical history: 1. 2 2. Cholecystectomy 3. Tonsillectomy 4. Nevus removed from back 5. Hysterectomy 6. Open breast biopsy Medical history: high cholesterol depression interstitial cystitis social History: smoke: none alcohol: none drugs: none - Constitutional Constitutional: Denies chills, Denies fever - EENT Eyes: denies blurred vision, denies pain Ears: deny: decreased hearing, tinnitus Ears, nose, mouth and throat: Denies headache, Denies sore throat - Breasts Breasts: bilateral: as per HPI - Cardiovascular Cardiovascular: Denies chest pain, Denies shortness of breath - Respiratory Respiratory: Denies cough - Gastrointestinal Gastrointestinal: Denies abdominal pain, Denies diarrhea, Denies nausea, Denies vomiting - Genitourinary (Female) Comment: Interstitial cystitis - Menstruation Menstruation: Reports post hysterectomy - 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 - Integumentary Integumentary: Denies pruritus, Denies rash - Neurological Neurological: Denies numbness, Denies weakness - Psychiatric Psychiatric: Reports depression - Endocrine Endocrine: Denies fatigue, Denies weight change - Hematologic/Lymphatic Comment: mobic once a week, asprirn, fish oil - Allergic/Immunologic Allergic/Immunologic: Reports seasonal allergies Objective - Vital Signs Vital signs: Vital Signs Temp 98.2 F 07/09/22 09:33 Pulse 94 07/09/22 09:33 Resp 16 07/09/22 09:33 BP 131/81 07/09/22 09:33 Pulse Ox 99 07/09/22 09:33 FiO2 Intake & Output 07/08/22 07/09/22 07/09/22 18:59 06:59 18:59 Weight 70.307 kg - Constitutional General appearance: Present: cooperative - EENT Eyes: Present: EOMI ENT: Present: hearing grossly normal - Neck Neck: Present: normal ROM - Respiratory Respiratory: bilateral: CTA - Cardiovascular Rhythm: regular Heart sounds: normal: S1, S2 - Gastrointestinal General gastrointestinal: Present: soft - Integumentary Integumentary: Present: normal turgor - Musculoskeletal Musculoskeletal: Present: gait normal - Psychiatric Psychiatric: Present: A&O x's 3, appropriate affect, intact judgment & insight - Additional findings Additional findings: Breast Exam: BRA: 40D inspection: bilateral grade 3 ptosis palpation: right breast: nipple inversion, multi-positional exam no dominant masses or nodules of concern; no thickening noted on physical examination in the lateral aspect of the breast Right axilla: No adenopathy of concern Left breast: Multi-positional exam no dominant masses or nodules of concern Left axilla: No adenopathy of concern Assessment and Plan Assessment: Impression: high cholesterol depression interstitial cystitis Chronic right nipple inversion/omentum left nipple inversion not noted today Plan: Repeat bilateral mammogram in 1 year with physician exam at that time Patient to follow up sooner any questions or concerns CC: Dr. Clayton; Jennifer Burr N.P.
== END ==
LOC: WWCWWP 09:20
PROVIDERS: ATTEND Surgery
DX: N64.53 Retraction of nipple (principal); F32.A Depression, unspecified; E78.5 Hyperlipidemia, unspecified; N30.10 Interstitial cystitis (chronic) without hematuria; Z80.3 Family history of malignant neoplasm of breast; Z88.6 Allergy status to analgesic agent; Z91.048 Other nonmedicinal substance allergy status; Z88.5 Allergy status to narcotic agent; Z88.8 Allergy status to other drugs, medicaments and biological substances

== ENCOUNTER → 2023-07-06 | Outpatient (CLI) | payer MEDICARE ==
--- NOTE | 2023-07-06 16:02 | MM ---
Reason for Exam: Screening (asymptomatic). Last mammogram was performed 1 year(s) and 1 month(s) ago. Patient History: Menarche at age 9. First Full-Term at age 31. Late child-bearing (after 30). Hysterectomy at age 39. Patient has history of breast feeding. Currently using Estrogen, starting at age 67. Patient used Hormonal Contraceptives for 5 years. Benign Excisional Biopsy. Sister had breast cancer, age 70. Mother had breast cancer, age 48. Risk Values: Kristina 5 year model risk: 6.7%. NCI Lifetime model risk: 13.9%. Prior Study Comparison: 06/24/2020 Bilateral Diagnostic Mammogram, [facility]. 06/26/2021 Bilateral Screening Mammogram, [facility]. 07/02/2022 Bilateral MG 3D screening mammo w/cad, [facility]. Tissue Density: There are scattered fibroglandular densities. Findings: Analyzed By CAD. Pattern appears symmetrical and stable. No significant interval change is evident. A few scattered punctate calcifications are present bilaterally. No suspicious groups of microcalcifications, spiculated or lobular masses, architectural distortion or other secondary signs of malignancy are mammographically apparent. Overall Assessment: Benign, BI-RAD 2 Management: Screening Mammogram of both breasts in 1 year. A negative mammogram report should not preclude additional follow up of suspicious palpable abnormalities. Patient should continue monthly self breast exam. A clinical breast exam by your physician is recommended on an annual basis and results should be correlated with mammographic findings. Electronically signed and approved by: Yamil Wasserman D.O. Radiologis
== END | disposition home or self-care (01) ==
LOC: RADMAMWWP 06:58
PROVIDERS: ATTEND Surgery
DX: Z12.31 Encounter for screening mammogram for malignant neoplasm of breast (principal); Z80.3 Family history of malignant neoplasm of breast
CPT/HCPCS: 77063; 77067

== ENCOUNTER → 2023-07-09 | Outpatient (CLI) | payer MEDICARE ==
[2023-07-09 10:19] VITALS: BP 129/79; PULSE 100; RESP 17; TEMP 98.3
--- NOTE | 2023-07-09 10:25 | P.PN ---
Subjective Progress Note Date: 07/09/23 Principal diagnosis: fibrocystic breast changes fibrocystic breast changes Fanny is a 73-year-old white female who presents for breast evaluation. She was seen in consultation for Dr. Clayton on 07-07-19. At that time she felt some fullness in the right lateral breast/axillary area, this has not changed. She had a bilateral mammogram performed on 12160713 which did not see anything of concern and repeat bilateral mammogram in 1 year was recommended. She also had an ultrasound performed of the area of thickening and the ultrasound did not show any cystic or solid lesions. The patient denied any pain or trauma to the breast. She is not complaining of any lumps masses or nodules in her breast. She does state that she feels some thickening in the lateral aspect of her right breast over the last several months. Nothing was noted radiographically at this site. No recent infections in the breast. No abnormal nipple discharge or changes. Most recent mammogram was on 07-06-23 and this was benign BIRAD 2 . She does have chronic right nipple inversion. Complaining of any new lumps masses or nodules of concern in either breast. Her 5 year Chelsi risk score is 6.7% we have discussed chemoprevention and she has declined caffiene: none chocolate: occasionally smoke: none Family History; mother: of breast cancer at 53, dx. premenopausal sister: breast cancer at 70, genetic testing negative son: cancer of appendix Hormonal History: menarche: 9 , bresat fed: yes, first born at 31 menopause: hysterectomy at 38, done for bleeding BCP: 10 years hormones: estradioil vaginal inserts Surgical history: 1. 2 2. Cholecystectomy 3. Tonsillectomy 4. Nevus removed from back 5. Hysterectomy 6. Open breast biopsy Medical history: high cholesterol depression interstitial cystitis social History: smoke: none alcohol: none drugs: none - Constitutional Constitutional: Denies chills, Denies fever - EENT Eyes: denies blurred vision, denies pain Ears: deny: decreased hearing, tinnitus Ears, nose, mouth and throat: Denies headache, Denies sore throat - Breasts Breasts: bilateral: as per HPI - Cardiovascular Cardiovascular: Denies chest pain, Denies shortness of breath - Respiratory Respiratory: Denies cough - Gastrointestinal Gastrointestinal: Denies abdominal pain, Denies diarrhea, Denies nausea, Denies vomiting - Genitourinary (Female) Comment: Interstitial cystitis - Menstruation Menstruation: Reports post hysterectomy - 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 - Integumentary Integumentary: Denies pruritus, Denies rash - Neurological Neurological: Denies numbness, Denies weakness - Psychiatric Psychiatric: Reports depression - Endocrine Endocrine: Denies fatigue, Denies weight change - Hematologic/Lymphatic Comment: mobic once a week, asprirn, fish oil - Allergic/Immunologic Allergic/Immunologic: Reports seasonal allergies Objective - Vital Signs Vital signs: Vital Signs Temp 98.3 F 07/09/23 10:08 Pulse 100 07/09/23 10:08 Resp 17 07/09/23 10:08 BP 129/79 07/09/23 10:08 Pulse Ox 97 07/09/23 10:08 FiO2 Intake & Output 07/08/23 07/09/23 07/09/23 18:59 06:59 18:59 Weight 72.575 kg - Constitutional General appearance: Present: cooperative - EENT Eyes: Present: EOMI ENT: Present: hearing grossly normal - Neck Neck: Present: normal ROM - Respiratory Respiratory: bilateral: CTA - Cardiovascular Heart sounds: normal: S1, S2 - Integumentary Integumentary: Present: normal turgor - Musculoskeletal Musculoskeletal: Present: gait normal - Psychiatric Psychiatric: Present: A&O x's 3, appropriate affect, intact judgment & insight - Additional findings Additional findings: Breast Exam: BRA: 40D inspection: bilateral grade 3 ptosis palpation: right breast: nipple inversion, multi-positional exam no dominant masses or nodules of concern; no thickening noted on physical examination in the lateral aspect of the breast Right axilla: No adenopathy of concern Left breast: Multi-positional exam no dominant masses or nodules of concern Left axilla: No adenopathy of concern Assessment and Plan Assessment: Impression: high cholesterol depression interstitial cystitis Chronic right nipple inversion/no left nipple inversion not noted today Stress chemoprophylaxis and at this time the patient has declined Plan: Repeat bilateral mammogram in 1 year with physician exam at that time Patient to follow up sooner any questions or concerns CC: Dr. Clayton; Jennifer Burr N.P.
== END ==
LOC: WWCWWP 08:58
PROVIDERS: ATTEND Surgery
DX: N60.11 Diffuse cystic mastopathy of right breast (principal); E78.00 Pure hypercholesterolemia, unspecified; F32.A Depression, unspecified; N30.10 Interstitial cystitis (chronic) without hematuria; N64.59 Other signs and symptoms in breast; Z80.3 Family history of malignant neoplasm of breast; Z88.1 Allergy status to other antibiotic agents; Z91.048 Other nonmedicinal substance allergy status; Z88.5 Allergy status to narcotic agent; Z88.8 Allergy status to other drugs, medicaments and biological substances